=== PATIENT | female | born 1940 | race African-American/Black ===

== ENCOUNTER 2017-05-25 00:04 | Emergency (ER) | payer OTHER ==
[~2017-05-25] VITALS: Ht 152.4 cm; Wt 75.0 kg
[2017-05-25] MEDS ORDERED: ASPIRIN 81MG TABLET PO ONE (00:30)
[2017-05-25] MEDS ORDERED: ATENOLOL 25MG TABLET PO ONE (00:30)
[2017-05-25] MEDS ORDERED: METFORMIN HCL 500MG TABLET PO ONE (00:30)
[2017-05-25 00:56] LABS: EOSINOPHILS % 1.6 % (0.0-5.0); HEMATOCRIT. 32.9 % (36.0-48.0); HEMOGLOBIN. 10.8 g/dL (12.0-16.0); LYMPHOCYTES % 23.7 % (20.0-50.0); MEAN CORPUSCULAR HEMOGLOBIN 28.8 pg (28.0-32.0); MEAN CORPUSCULAR VOLUME 87.5 fL (81.0-99.0); MEAN PLATELET VOLUME 10.7 fl (7.4-10.4); NEUTROPHILS % 65.7 % (40.0-76.0); PLATELET 194 x1000/uL (130-400); RED BLOOD CELL COUNT 3.76 mill/uL (4.2-5.4); RED CELL DISTRIBUTION WIDTH 15.3 % (11.6-14.6)
[2017-05-25 01:02] LABS: PARTIAL THROMBOPLASTIN TIME 28.2 sec (23.4-31.0)
[2017-05-25 01:12] LABS: CARBON DIOXIDE 26 mEq/L (21-32); CHLORIDE 102 mEq/L (98-107); ETHANOL BLOOD < 10 mg/dL; TROPONIN I < 0.02 ng/mL (0.00-0.04)
[2017-05-25 01:29] LABS: CLARITY URINE CLEAR (CLEAR); COLOR URINE YELLOW (YELLOW); GLUCOSE URINE 3+ (NEGATIVE); KETONES URINE NEGATIVE (NEGATIVE); LEUKOCYTE ESTERASE URINE NEGATIVE (NEGATIVE); NITRITE URINE NEGATIVE (NEGATIVE); OCCULT BLOOD URINE TRACE (NEGATIVE); PROTEIN URINE 1+ (NEGATIVE); SPECIFIC GRAVITY URINE 1.013 (1.005-1.030); UROBILINOGEN URINE 0.2 E.U./dL (0.2-1.0)
[2017-05-25 01:52] LABS: *AMPHETAMINES SCREEN URINE NEGATIVE (NEGATIVE); *BARBITURATES SCREEN URINE NEGATIVE (NEGATIVE); *BENZODIAZEPINES SCREEN URINE NEGATIVE (NEGATIVE); *COCAINE SCREEN URINE NEGATIVE (NEGATIVE); CANNABINOID URINE SCREEN NEGATIVE (NEGATIVE); METHADONE URINE SCREEN NEGATIVE (NEGATIVE); OPIATES URINE SCREEN NEGATIVE (NEGATIVE); PHENCYCLIDINE URINE SCREEN NEGATIVE (NEGATIVE)
[2017-05-25 04:20] VITALS: BP 149/70
== END 2017-05-25 04:34 | disposition short-term general hospital (02) ==
LOC: ER 00:16
DX: R55 Syncope and collapse (principal); E87.2 Acidosis; N28.9 Disorder of kidney and ureter, unspecified; E86.0 Dehydration; E11.9 Type 2 diabetes mellitus without complications; I51.7 Cardiomegaly; I11.9 Hypertensive heart disease without heart failure; F41.9 Anxiety disorder, unspecified
CPT/HCPCS: 36415; 70450; 71010; 80053; 80305; 81001; 82962; 83605; 83690; 83880; 84484; 85025; 85610; 85730; 93005; 99291; G0482; J7030

== ENCOUNTER 2021-09-12 02:21 | Emergency (ER) | payer OTHER ==
[~2021-09-12] VITALS: Ht 160 cm; Wt 130.0 kg
[2021-09-12] MEDS ORDERED: ONDANSETRON 4MG ODT PO ONE (02:45)
[2021-09-12] MEDS ORDERED: ACETAMINOPHEN 325MG TABLET PO ONE (02:45)
[2021-09-12] MEDS ORDERED: ONDA4TAB5 MT (04:11)
[2021-09-12] MEDS ORDERED: ALBU6.7H9 INH (04:12)
[2021-09-12 04:58] VITALS: BP 188/77
== END 2021-09-12 04:58 | disposition home or self-care (01) ==
LOC: ER 02:21
DX: U07.1 COVID-19 (principal); B34.9 Viral infection, unspecified; I10 Essential (primary) hypertension; E11.9 Type 2 diabetes mellitus without complications; I25.10 Atherosclerotic heart disease of native coronary artery without angina pectoris; F41.9 Anxiety disorder, unspecified; Z95.0 Presence of cardiac pacemaker
CPT/HCPCS: 87426; 93005; 99284; Q0162